=== PATIENT | male | born 1950 | race Caucasian/White ===

== ENCOUNTER 2016-09-27 07:12 | Emergency (ER) | payer OTHER ==
[~2016-09-27] VITALS: Ht 170.2 cm; Wt 115.3 kg
[2016-09-27] MEDS ORDERED: PERCOCET 5/31 TABLET PO (07:59)
[2016-09-27 08:32] VITALS: BP 132/68
[2016-09-27] MEDS ORDERED: LEVOTHYROXINE150 MCG PO (08:38)
[2016-09-27] MEDS ORDERED: ATORVASTATIN CA10 MG PO (08:38)
== END 2016-09-27 08:27 | disposition home or self-care (01) ==
LOC: EME 07:12
DX: S40.011A Contusion of right shoulder, initial encounter (principal); W11.XXXA Fall on and from ladder, initial encounter; E89.0 Postprocedural hypothyroidism; Z85.528 Personal history of other malignant neoplasm of kidney; Z90.5 Acquired absence of kidney; Z88.0 Allergy status to penicillin
CPT/HCPCS: 73030; 99281; 99284